=== PATIENT | female | born 1950 | race Caucasian/White ===

== ENCOUNTER 2017-07-12 09:30 | Inpatient (IN) | payer OTHER ==
[~2017-07-12] VITALS: Ht 157.5 cm; Wt 79.4 kg
[2017-07-14] MEDS ORDERED: IRBESARTAN150 MG PO (14:02)
[2017-07-14] MEDS ORDERED: [UNRECOGNIZED DRUG - REMARK] PO (14:02)
[2017-07-14] MEDS ORDERED: DICLOFENAC SOD100 G1 (14:03)
[2017-07-14] MEDS ORDERED: LIPITOR20 MG PO (14:03)
[2017-07-14] MEDS ORDERED: ASA81 MG PO (14:03)
[2017-07-14] MEDS ORDERED: CALCIUM 600 +1 EAC4 PO (14:04)
[2017-07-14] MEDS ORDERED: OMEGA 3-6-9 11200 M1 PO (14:04)
[2017-07-24] MEDS ORDERED: ZANTAC300 MG PO (07:15)
== END 2017-07-24 18:17 | disposition home or self-care (01) | DRG 741 ==
LOC: O/R 07-23 06:00 → SURH 07-23 14:30 → OB/GYN 07-23 16:32 → SURH 07-23 17:00 → OB/GYN 07-24 18:17
PROVIDERS: Obstetrics & Gynecology Gynecologic Oncology
PROC: 0UT7FZZ Resection of Bilateral Fallopian Tubes, Via Natural or Artificial Opening With Percutaneous Endoscopic Assistance (ICD-10-PCS; 2017-07-23)
PROC: 0UT2FZZ Resection of Bilateral Ovaries, Via Natural or Artificial Opening With Percutaneous Endoscopic Assistance (ICD-10-PCS; 2017-07-23)
PROC: 0UT9FZZ Resection of Uterus, Via Natural or Artificial Opening With Percutaneous Endoscopic Assistance (ICD-10-PCS; principal; 2017-07-23 17:00)
DX: C54.1 Malignant neoplasm of endometrium (principal)